=== PATIENT | female | born 1960 ===

== ENCOUNTER 2019-03-09 09:15 | Inpatient (IN) | payer OTHER ==
[~2019-03-09] VITALS: Ht 154.9 cm; Wt 110.7 kg
[2019-03-09] MEDS ORDERED: LISINOPRIL30 MG PO (10:24)
[2019-03-09] MEDS ORDERED: SYNTHROID150 MCG PO (10:24)
[2019-03-09] MEDS ORDERED: PROPRANOLOL HCL20 MG PO (10:24)
[2019-03-09] MEDS ORDERED: GLUCOTROL10 MG PO (10:25)
[2019-03-09] MEDS ORDERED: VITAMIN D10000 UNIT PO (10:25)
[2019-03-09] MEDS ORDERED: VITAMIN D35000 UNI1 PO (10:25)
[2019-03-09] MEDS ORDERED: HUMULIN N100 UNIT/2 SUBCUTANEO (13:14)
== END 2019-03-13 11:43 | disposition home or self-care (01) | DRG 741 ==
LOC: ADM 09:15 → OB/GYN 03-12 08:20 → O/R 03-12 08:20 → RECOVERY 03-12 09:15 → CIR.AMB 03-12 09:15 → EDSTATUS 03-12 09:15 → OB/GYN 03-12 21:56
PROVIDERS: ADMIT Obstetrics & Gynecology Gynecologic Oncology
PROC: 0UT74ZZ Resection of Bilateral Fallopian Tubes, Percutaneous Endoscopic Approach (ICD-10-PCS; 2019-03-12)
PROC: 0UT24ZZ Resection of Bilateral Ovaries, Percutaneous Endoscopic Approach (ICD-10-PCS; 2019-03-12)
PROC: 07BC4ZX Excision of Pelvis Lymphatic, Percutaneous Endoscopic Approach, Diagnostic (ICD-10-PCS; 2019-03-12)
PROC: 0UT94ZZ Resection of Uterus, Percutaneous Endoscopic Approach (ICD-10-PCS; principal; 2019-03-12 15:45)
DX: C54.1 Malignant neoplasm of endometrium (principal); N72 Inflammatory disease of cervix uteri; R59.0 Localized enlarged lymph nodes; I10 Essential (primary) hypertension; E03.8 Other specified hypothyroidism; E11.9 Type 2 diabetes mellitus without complications; Z79.4 Long term (current) use of insulin